=== PATIENT | female | born 1950 | race African-American/Black ===

== ENCOUNTER 2022-01-09 14:17 | Emergency (ER) | payer BC, OTHER ==
[2022-01-09] MEDS ORDERED: CLINDAMYCIN 600MG PREMIX IVPB 600 MG/50 ML BAG IVPB ONE ×2 (14:45→14:53)
[2022-01-09 14:48] VITALS: PULSE 81; TEMP 97.9; BMI 26.5
[2022-01-09 15:42] LABS: BASO % 0.5 % (0-2.0); EOS % 0.1 % (0-4.5); HEMATOCRIT 40.3 % (32.4-45.2); HEMOGLOBIN 13.7 GM/dL (10.7-15.3); LYMPH % 34.2 % (8-40); MCH 28.4 pg (25.7-33.7); MEAN CELL VOLUME 83.5 fl (80-96); MEAN PLT VOLUME 9.1 fl (7.5-11.1); MONO % 6.2 % (3.8-10.2); PLATELET COUNT 188 10^3/uL (134-434); RBC 4.83 M/mm3 (3.60-5.2); RDW 13.9 % (11.6-15.6); WHITE BLOOD COUNT 10.5 K/mm3 (4.0-10.0)
[2022-01-09 15:43] LABS: INR 0.98 (0.83-1.09); PROTHROMBIN TIME (PATIENT) 11.3 SEC (9.7-13.0)
[2022-01-09 15:46] LABS: ACTIVATED PTT 29.5 SECONDS (25.2-36.5); BLOOD UREA NITROGEN 20.2 mg/dL (7-18); CALCIUM 10.4 mg/dL (8.5-10.1)
[2022-01-09 15:47] LABS: ALBUMIN 3.8 g/dl (3.4-5.0)
[2022-01-09 15:50] LABS: CREATININE 0.8 mg/dL (0.55-1.3)
[2022-01-09 15:51] LABS: BILIRUBIN,TOTAL 0.4 mg/dL (0.2-1); TOT PROT 7.4 g/dl (6.4-8.2)
[2022-01-09] MEDS ORDERED: metoPROLOL SUCCINATE 25 MG TAB.SR.24H (FP) PO ONE (16:30)
[2022-01-09] MEDS ORDERED: metoPROLOL SUCCINATE 25 MG TAB.SR.24H (FP) ONE (16:34)
[2022-01-09 17:21] VITALS: BP 164/87
== END 2022-01-09 17:22 | disposition home or self-care (01) ==
LOC: JER 14:17
PROC: 3E03329 Introduction of Other Anti-infective into Peripheral Vein, Percutaneous Approach (ICD-10-PCS; principal; 2022-01-09)
PROC: 3E033GC Introduction of Other Therapeutic Substance into Peripheral Vein, Percutaneous Approach (ICD-10-PCS; 2022-01-09)
DX: R22.0 Localized swelling, mass and lump, head (principal)
CPT/HCPCS: 36415; 80053; 85025; 85610; 85730; 86850; 86900; 86901; 99284-25

== ENCOUNTER 2022-02-28 16:18 | Emergency (ER) | payer BC ==
[2022-02-28 16:23] VITALS: BMI 25.8
[2022-02-28] MEDS ORDERED: BAMLANIVIMAB 700 MG, ETESEVIMAB 1,400 MG in SODIUM CHLORIDE 100 ML IVPB ONE (16:52)
[2022-02-28] MEDS ORDERED: BEBTELOVIMAB (EUA) 175 MG/2 ML VIAL IVPUSH ONE (17:13)
[2022-02-28 17:35] LABS: BASO % 0.7 % (0-2.0); EOS % 0.1 % (0-4.5); HEMATOCRIT 44.4 % (32.4-45.2); HEMOGLOBIN 15.1 GM/dL (10.7-15.3); LYMPH % 28.1 % (8-40); MCH 27.9 pg (25.7-33.7); MCHC 34.1 g/dl (32.0-36.0); MEAN CELL VOLUME 81.9 fl (80-96); MEAN PLT VOLUME 9.2 fl (7.5-11.1); MONO % 14.3 % (3.8-10.2); NEUT % 56.8 % (42.8-82.8); PLATELET COUNT 156 10^3/uL (134-434); RBC 5.42 M/mm3 (3.60-5.2); RDW 13.7 % (11.6-15.6); WHITE BLOOD COUNT 4.5 K/mm3 (4.0-10.0)
[2022-02-28 17:46] LABS: CALCIUM 10.7 mg/dL (8.5-10.1)
[2022-02-28 17:47] LABS: ALBUMIN 4.1 g/dl (3.4-5.0); BLOOD UREA NITROGEN 20.2 mg/dL (7-18)
[2022-02-28 17:50] LABS: CREATININE 0.9 mg/dL (0.55-1.3)
[2022-02-28 17:51] LABS: BILIRUBIN,TOTAL 0.8 mg/dL (0.2-1)
[2022-02-28 17:52] LABS: TOT PROT 7.7 g/dl (6.4-8.2)
[2022-02-28 18:10] VITALS: BP 108/72; PULSE 86; TEMP 98.3
== END 2022-02-28 18:49 | disposition home or self-care (01) ==
LOC: JER 16:18
DX: U07.1 COVID-19 (principal); J34.89 Other specified disorders of nose and nasal sinuses; R05.9 Cough, unspecified
CPT/HCPCS: 36415; 80053; 85025; 96365; 99284-25; M0222; Q0222